=== PATIENT | female | born 1970 | race Caucasian/White ===

== ENCOUNTER → 2016-08-09 | Outpatient (CLI) | payer OTHER ==
[~2016-08-09] VITALS: Ht 152.4 cm; Wt 75.3 kg
[~2016-08-09] MED LIST: AMITRIPTYLINE H10 M3 PO; ATORVASTATIN CA40 MG PO; CATAPRES-TTS 10.1 M2 TD; COMPOUND CREAM; FLONASE 0.05%50 MCG NASAL; GRALISE600 MG PO; HYDROXYZINE HCL25 M1 PO; LEVOCETIRIZINE D5 MG PO; LIORESAL 10 MG10 MG PO; MEDROLDOSEPACK PO; METFORMIN HCL500 MG PO; OLOPATADINE HCL5 ML INTRAOCULR; PROTONIX40 M1 PO; SINGULAIR 10 MG10 M1 PO
--- NOTE | ~2016-08-09 | HPC ---
[facility] [address] [place] [address] PAIN MANAGEMENT CONSULTATION Name: SHASHI DUFFY [facility] [id number] Admission: 08/09/16 Attend Phys: Devante Dobbins MD Discharge: Date of : 70 Report #: [id number] THIS REPORT FOR: //name// CC: Devante Marcano DATE OF SERVICE: 08/09/2016 FOLLOWUP COMPLAINT: The pain in my left foot has gotten a bit worse and I would like to have another injection. FOLLOWUP HISTORY: The patient is a 46-year-old female who has been seen and followed in the pain clinic because of chronic pain in her low back as well as chronic regional pain syndrome involving her foot. She is experiencing pain and discomfort down into the left foot. She notes some increased pain and discomfort in her back as well. She states she went to [employer]. She was getting a cart to shop with. The employee was returning cart to the cart area. He could not see her, but when he pushed 30 carts forward they impacted her back. She noticed some increased pain and discomfort as a result of that. She still is having some discomfort in that regard. PHYSICAL EXAMINATION: The patient complains of pain and discomfort in the left foot. Blood pressure 140/85, pulse 93, respiratory rate 20, room air saturation is 98%. The patient has not fallen since we saw her last. Her BMI is 33.9. Weight is 78.8 kg. She complains of pain and discomfort in the left foot, which is burning, prickling, stabbing and throbbing. She rates it as a 6-7 at this juncture. It is exacerbated when she walks, stands as well as with driving. IMPRESSION: 1. History of chronic regional pain syndrome involving the left foot. 2. Lumbar radiculopathy in the L5-S1 dermatomal distribution, which has been exacerbated over the last few weeks. RECOMMENDATIONS: We discussed treatment options with the patient. Risks and benefits of a lumbar epidural steroid injection were again reviewed. Possible complications were discussed. The patient elects to proceed. PROCEDURE NOTE: The patient was placed in the prone position. Fluoroscopy was used to identify the L5-S1 area on the left. This area had been sterilely prepped with Betadine and infiltrated with 0.25% bupivacaine. A total of 80 mg Depo-Medrol, 40 mg triamcinolone and 2 mL of 0.25% bupivacaine was injected. The patient tolerated the procedure well. There were no complications. She remained in the pain clinic for an appropriate amount of time. A total of 6 second fluoroscopy time was used. The patient's pain decreased from 6-7 to 0 at the time of discharge. She will follow up in the future as needed. [facility] [address] [place] [address] PAIN MANAGEMENT CONSULTATION Name: SHASHI DUFFY Room #: REG [facility] Jones#: [id number] Admission: 08/09/16 Attend Phys: Devante Dobbins MD Discharge: Date of : 70 Report #: [id number] We would like to thank you for letting us participate in her care. She will continue with her medications of amitriptyline 10 mg 2 tablets at bedtime, baclofen 10 mg t.i.d., Klonopin patch 0.1 to the skin every 7 days, gabapentin 600 mg every day. The patient will call us if she has any problems with her medications. <ELECTRONICALLY SIGNED> By: Devante Dobbins MD 09/10/16 [id number] Devante Dobbins MD /nt
[2016-08-09 11:39] VITALS: BP 128/85
== END ==
LOC: PAIN 11:04
DX: G89.4 Chronic pain syndrome (principal); M54.17 Radiculopathy, lumbosacral region; F17.210 Nicotine dependence, cigarettes, uncomplicated

== ENCOUNTER → 2017-01-29 | Outpatient (CLI) | payer OTHER ==
[~2017-01-29] VITALS: Ht 152.4 cm; Wt 73.4 kg
[2017-01-29 11:11] VITALS: BP 116/69
== END ==
LOC: PAIN 06:53
DX: G90.522 Complex regional pain syndrome I of left lower limb (principal); M54.16 Radiculopathy, lumbar region; M54.5 Low back pain

== ENCOUNTER → 2018-01-02 | Outpatient (CLI) | payer OTHER ==
[~2018-01-02] VITALS: Ht 152.4 cm; Wt 69.7 kg
--- NOTE | ~2018-01-02 | HPC ---
[facility] [place] [place] [address] PAIN MANAGEMENT CONSULTATION Name: SHASHI DUFFY Room #: REG [facility] Arcenio.#: [id number] Admission: 01/02/18 Attend Phys: Devante Dobbins MD Discharge: Date of : 70 Report #: [id number] THIS REPORT FOR: //name// CC: RUTH ANN Dobbins Physician staff DATE OF SERVICE: 01/02/2018 FOLLOWUP COMPLAINT: My foot is better. I have been exercising and doing more. I am having some pain that is going down my buttocks on the left side. FOLLOWUP HISTORY: The patient is a 47-year-old female who has been seen in the pain clinic because of pain and discomfort involving her left foot in the past. Overall, she feels that her left foot is improving. She has lost about 10 pounds. She has been exercising, going to the gym. She is getting on with her life. She has noticed some worsening of pain and discomfort that has recurred over the last few weeks. She is experiencing some pain and discomfort, which is exacerbated by driving, bending movement and walking. Notes that medications are somewhat helpful. It involves her lower back down into the left buttocks, posterior portion of her leg to the level of the knee. She feels that things are going reasonably well and would like to proceed with an injection today. Injections in the past have been beneficial in the L5-S1 area. ALLERGIES: LATEX, CONTRAST DYE. MEDICATIONS: Baclofen 10 mg 1 p.o. t.i.d., gabapentin 600 mg at bedtime, amitriptyline 10 mg at bedtime, olopatadine 5 mg drops intraocular daily, Flonase 0.05%, hydroxyzine 25 mg, takes 50 mg at bedtime; compound cream for left foot; metformin 500 mg b.i.d. with meals; Protonix 40 mg b.i.d.; and Lipitor 40 mg daily. PAIN CLINIC ASSESSMENT: 1. The patient states she has not been treated for osteoarthritis or rheumatoid arthritis. 2. Height 5 feet 0 inches, weight 153 pounds, BMI is 30.0. 3. VITAL SIGNS: Blood pressure 136/86, pulse 80, respiratory rate 16, room air saturation 99%. 4. Pain intensity -02/10. 5. Fall risk. The patient has not fallen in the last 3 months. 6. Blood thinner. The patient is not on any blood thinning medication. 7. History of hypertension. The patient has not been treated for hypertension. 8. Opioid therapy greater than 6 weeks. The patient is not on an opioid contract. 9. Risk assessment tool 2/3, which is low. 10. Functional assessment tool 60-70 which shows intense problems with [facility] [address] [place] [address] PAIN MANAGEMENT CONSULTATION Name: SHASHI DUFFY [facility] [id number] Admission: 01/02/18 Attend Phys: Devante Dobbins MD Discharge: Date of : 70 Report #: [id number] activities of daily living secondary to the pain. 11. Recreational drug use. The patient denies use of recreational drugs. 12. Tobacco: The patient does smoke cigarettes daily, 1 pack per day, has smoked for 29 ____. 13. Alcohol: The patient denies frequent use of alcoholic beverages. PHYSICAL EXAMINATION: GENERAL: The patient is a well-developed, well-nourished white female. She appears her stated age. She is alert and oriented x 3. Affect is appropriate. Speech is fluent. HEENT: Normocephalic, atraumatic. Extraocular eye muscles intact. The patient wears glasses. Sclerae nonicteric. Mucous membranes are moist. Hearing is within normal limits. NECK: Without adenopathy or bruits. Good range of motion. HEART: Regular rate. S1, S2. ABDOMEN: Nontender, without organomegaly. CHEST: Clear to auscultation without crackles or rales. MUSCULOSKELETAL: Without significant scoliosis, kyphosis or lordosis. The patient has pain and discomfort with radiation down into the left buttocks area in the dorsum of her left leg. It is the L5-S1 dermatomal distribution. This area improved after epidural steroid injections in the past. Forward bending causes some increased pain. The patient complains of some spasm and undergoes a spasm while lying on the table in preparation for the procedure. PROCEDURE NOTE: The patient was then positioned in the appropriate place. Fluoroscopy using an anterior, posterior as well as the lateral view were used to place the injection. The left L5-S1 paraspinous position on the left was identified. This area was infiltrated with 0.25% bupivacaine. A 17-gauge Tuohy with loss of resistance technique was used to gain access to the epidural space. A total of 2 mL of 0.25% bupivacaine was injected. The patient tolerated the procedure well. There were no complications. Total fluoroscopy time was 11 seconds. Pain decreased to 0 at the time of discharge. We would like to thank you for letting us participate in her care. We hope she continues to improve. By: [id number] [id number] Devante Dobbins MD /hilario
[2018-01-02 10:47] VITALS: BP 136/86
== END | disposition home or self-care (01) ==
LOC: PAIN 07:32
DX: M54.16 Radiculopathy, lumbar region (principal); M25.572 Pain in left ankle and joints of left foot; F17.210 Nicotine dependence, cigarettes, uncomplicated; Z91.040 Latex allergy status; Z91.041 Radiographic dye allergy status; Z79.899 Other long term (current) drug therapy